=== PATIENT | female | born 1995 | race Caucasian/White ===

== ENCOUNTER 2024-04-03 17:15 | Emergency (ER) | payer OTHER ==
[~2024-04-03] VITALS: Ht 162.6 cm; Wt 62.7 kg
[2024-04-03] MEDS ORDERED: ESTROGEN TOP (17:34)
[2024-04-03] MEDS ORDERED: ENDOCET 5-3251 EACH PO (18:11)
[2024-04-03 18:15] VITALS: BP 115/79
== END 2024-04-03 18:28 | disposition home or self-care (01) ==
LOC: ED 17:15
DX: R10.32 Left lower quadrant pain (principal)

== ENCOUNTER 2024-05-01 12:42 | Emergency (ER) | payer OTHER ==
[~2024-05-01] VITALS: Ht 162.6 cm; Wt 62.7 kg
[~2024-05-01 12:42] MED LIST: ENDOCET 5-3251 EACH PO; ESTROGEN TOP
[2024-05-01 12:49] VITALS: BP 136/85
[2024-05-01] MEDS ORDERED: ZOFRAN ODT4 MG PO (12:49)
[2024-05-01] MEDS ORDERED: PERCOCET 325 MG1 TA2 PO (13:28)
[2024-05-01] MEDS ORDERED: Ibuprofen 200 MG TAB PO ONE (13:30)
== END 2024-05-01 14:13 | disposition home or self-care (01) ==
LOC: ED 12:42
DX: N85.8 Other specified noninflammatory disorders of uterus (principal)